=== PATIENT | female | born 1990 | race Caucasian/White ===

== ENCOUNTER 2022-03-23 18:09 | Emergency (ER) | payer OTHER, SELFPAY ==
[2022-03-23 18:15] VITALS: BP 133/84; PULSE 81; RESP 16; TEMP 36.4; O2SAT 100
--- NOTE | 2022-03-23 19:22 | ED.ABDPAIN ---
HPI - Abdominal Pain General Chief Complaint: Abdominal Pain Stated Complaint: severe stomach pain Source: patient Mode of arrival: ambulatory Limitations: no limitations History of Present Illness HPI narrative: 32-year-old female with obesity, esophageal stenosis status post dilatation, gastric reflux presents to the ER with a 2 week history of -- epigastric pain which is continuous. No radiation of the pain. She has nausea without any vomiting or diarrhea. No fever. -- Suprapubic pain. No dysuria or hematuria. MD elicited complaint: abdominal pain Pertinent past history: other ( Gastric reflux) Onset (ago): week(s) ( started 2 weeks ago) Pain Consistency: constant Location: epigastric and suprapubic Quality: aching Radiation: none Migration to: no migration Exacerbating factors: nothing Relieving factors: nothing Associated symptoms: denies other symptoms and nausea Review of Systems Review of Systems: All systems reviewed & are unremarkable except as noted in HPI and below Constitutional: Constitutional: Reports as per HPI and Reports no additional constitutional complaints Eyes: Eyes: Reports as per HPI and Reports no additional eye complaints ENT: Reports system reviewed and no additional complaints, except as documented and Reports as per HPI Cardiovascular: Cardiovascular: Reports as per HPI and Reports no additional cardiovascular complaints Respiratory: Respiratory: Reports as per HPI and Reports no additional respiratory complaints Gastrointestinal: Gastrointestinal: Reports as per HPI, Reports abdominal pain and Reports nausea Genitourinary: Genitourinary: Reports no additional female genitourinary complaints and Reports as per HPI Musculoskeletal: Musculoskeletal: Reports no additional musculoskeletal complaints and Reports as per HPI Integumentary/Breasts: Skin/Breast: Reports system reviewed and no additional complaints, except as docu and Reports as per HPI Neurologic: Reports system reviewed and no additional complaints, except as documented and Reports as per HPI Psychiatric: Psychiatric: Reports no additional psychiatric complaints and Reports as per HPI Endocrine: Endocrine: Reports no additional endocrine complaints and Reports as per HPI Hematologic/Lymphatic: Hematologic/Lymphatic: Reports no additional hematologic/lymphatic complaints and Reports as per HPI Allergic/Immunologic: Allergic/Immunologic: Reports no additional allergic/immunologic complaints and Reports as per HPI PMFSH Past Medical History Medical History (Updated 03/23/22 @ 20:45 by Subhash Trejo MD) Esophageal dilatation Esophageal stenosis Gastric reflux Obesity Exam Const: General: healthy appearing and no acute distress Nutritional Appearance: well nourished Orientation/consciousness: patient oriented x3 Limitations: no limitations HENMT: Head: normal to inspection Ears: external ears normal Face/Nose/Sinus: Normal external nose present Face and sinus: normal facial exam Mouth: Yes Normal oral and palatal mucosa present Throat: posterior oropharynx normal Eyes: Conjunctivae: conjunctivae normal Pupils: Equal, round and reactive pupils present EOM: EOMs intact bilaterally Direct Ophthalmoscopy: no photophobia Neck: Neck: normal visual inspection, no lymphadenopathy and no meningeal signs Chest: Chest palpation & inspection: normal inspection of the chest Resp: Effort & Inspection: normal respiratory effort Auscultation: clear to auscultation bilaterally Cardio: Rate: regular rate Rhythm: regular rhythm GI: GI Palp: Yes Soft to palpation Other: epigastric tenderness without any rigidity or rebound. No suprapubic tenderness noted. : General: Yes no CVA tenderness Back/Spine/Pelvis: Back: no CVA tenderness Skin: General skin exam: normal color Rashes: no rashes Wounds: no wounds Neuro: General: patient oriented x3, moves all extremities, no meningeal signs, no focal motor deficits
[2022-03-23 19:44] LABS: Basophils Absolute Auto 0.03 K/mm3 (0.00-0.10); Basophils Percent Auto 0.4 % (0.0-1.0); Eosinophils Absolute Auto 0.19 K/mm3 (0.02-0.50); Eosinophils Percent Auto 2.3 % (1.0-6.0); Hematocrit 44.5 % (35.0-49.0); Hemoglobin 14.3 g/dL (12.0-15.0); Immature Granulocyte Absolute 0.03 K/mm3 (0.00-0.00); Immature Granulocyte Percent A 0.4 % (0.0-0.0); Lymphocytes Absolute Auto 2.04 K/mm3 (1.10-4.50); Lymphocytes Percent Auto 24.2 % (18.0-42.0); Mean Corpuscular HGB Conc 32.1 g/dL (32.0-36.0); Mean Corpuscular Hemoglobin 28.4 pg (27.0-31.0); Mean Corpuscular Volume 88.3 fL (78.0-102.0); Mean Platelet Volume 10.9 fl (9.2-11.8); Monocytes Percent Auto 7.1 % (2.0-11.0); Neutrophils Absolute Auto 5.5 K/mm3 (1.7-7.2); Neutrophils Percent Auto 65.6 % (50.0-70.0); Platelet Count Result 250 K/mm3 (150-420); Red Blood Count 5.04 M/mm3 (4.20-5.40); Red Cell Distribution Width 14.2 % (11.6-14.4); White Blood Count 8.4 K/mm3 (4.8-10.8)
[2022-03-23 19:46] LABS: Add Urine Microscopic? NO; Appearance Urine Clear (Clear); Bilirubin Urine Negative (Negative); Blood Urine Negative (Negative); Color Urine Yellow (Yellow); Glucose Urine UA Negative (Negative); Ketones Urine Negative (Negative); Leukocyte Esterase Ur Negative LEU/UL (Negative); Nitrate Urine Negative (Negative); Protein Urine Negative (Negative); Specific Grav Ur >= 1.030 (1.010-1.020); Urobilinogen Urine 0.2 mg/dL (0.2-1.0); pH Urine 5.5 (5.0-8.0)
[2022-03-23 19:53] LABS: Pregnancy On Board Control Positive; Urine Pregnancy Test Negative
[2022-03-23 19:59] LABS: Partial Thromboplastin Time 27.8 SEC (23.90-30.70); Prothrombin Time 10.9 Seconds (9.50-12.10)
[2022-03-23 20:04] LABS: Alanine Aminotransferase 32 U/L (14-59); Albumin Level 3.5 g/dL (3.4-5.0); Alkaline Phosphatase 107 U/L (46-116); Anion Gap 4 mmol/L (8-16); Aspartate Amino Transferase 19 U/L (15-37); Bilirubin,Total 0.6 mg/dL (0.00-1.00); Blood Urea Nitrogen 25 mg/dL (7-18); Carbon Dioxide 31 mmol/L (21-32); Chloride 104 mmol/L (98-108); Estimated Glomerular Filt Rate > 60; Glucose 106 mg/dL (70-99); Lipase 22 U/L (16-77); Osmolality Calculated 292 mOsm/kg (285-295); Potassium 3.9 mmol/L (3.5-5.1); Sodium 139 mmol/L (136-145); Total Protein 7.2 g/dL (6.4-8.2)
[2022-03-23 20:06] LABS: Lactic Acid Reflex 1.1 mmol/L (0.4-2.0)
[2022-03-23 20:08] LABS: Calcium 8.5 mg/dL (8.5-10.1)
[2022-03-23 20:11] LABS: Troponin I 4.1 ng/L (0.00-60.4)
[2022-03-23 21:19] VITALS: BP 131/81; PULSE 88; RESP 20; TEMP 36.7; O2SAT 99
== END 2022-03-23 21:20 | disposition home or self-care (01) ==
PROVIDERS: Emergency Provider Internal Medicine Critical Care Medicine
DX: R10.13 Epigastric pain (principal)
CPT/HCPCS: 36415; 80053; 81003; 81025; 83605; 83690; 84484; 85025; 85610; 85730; 99284

== ENCOUNTER 2022-07-29 01:12 | Observation (INO) | payer OTHER, SELFPAY ==
[2022-07-29] VITALS (45 sets, daily range): BP systolic 78–145; BP diastolic 55–112; PULSE 63–86; RESP 13–27; TEMP 36.6–36.9; O2SAT 93–100; BMI 37.0
--- NOTE | 2022-07-29 | ECHO_ITS ---
Patient Info Name: Ellen Alvarez Age: 32 years : 1990 Gender: Female Ht: 64 in Wt: 216 lbs BSA: 2.15 m2 HR: 65 bpm BP: 122 / 72 mmHg Heart Rhythm: Sinus Rhythm Technical Quality: Fair Exam Date: 07/29/2022 9:29 AM Exam Location: [facility] Pulmonary Exam Room: ICU 1 Patient Status: Outpatient Admit Date: 07/29/2022 Staff Ordering Physician: Madina Wilkins APRN Production Troubleshooter: Jenni Mercado RDCS Attending Provider: Josiah Rosas MD Exam Type: CA echo dop color flow w con Study Info Complete two-dimensional, color flow and Doppler transthoracic echocardiogram is performed with contrast to opacify the left ventricle and to improve the deliniation of the left ventricle endocardial borders. Contrast/Agitated Saline Contrast/Ag. Saline: Definity Amount: 2.00 ml Administered By: Jenni Mercado [facility] Existing IV Access: Yes IV Access Condition: patent with no signs of infiltration Summary 1. Technically difficult echocardiogram because of obesity. 2. Definity contrast used to improve visualization. 3. Otherwise unremarkable examination. Left Ventricle Left ventricular chamber dimension is normal. Left ventricular systolic function is normal, estimated at 60-65%. The left ventricular diastolic function is normal. Right Ventricle Right ventricular chamber dimension is normal. Left Atria Left atrial chamber dimension is normal. Right Atria Right atrial chamber dimension is normal. Aortic Valve The aortic valve is normal. Pulmonic Valve The pulmonic valve is normal. Mitral Valve The mitral valve has normal leaflets. Tricuspid Valve The tricuspid valve leaflets are normal. Pericardium/Pleural The pericardium appears normal. Aorta The aortic root size at the sinus of Valsalva is normal. Left Ventricular Outflow Tract Name Value Normal LVOT 2D LVOT Diameter 1.96 cm LVOT Doppler LVOT Peak Gradient 6 mmHg LVOT Mean Gradient 4 mmHg LVOT VTI 27.41 cm LVOT VTI/AV VTI Ratio 0.89 LVOT Stroke Volume 83.09 ml LVOT CO 16.37 l/min LVOT CI 7.62 L/min/m2 Pulmonic Valve Name Value Normal RVOT Doppler RVOT Peak Gradient 2 mmHg PV Doppler PV Peak Gradient 3 mmHg Mitral Valve Name Value Normal MV Doppler MV Decel [place] 433.40 cm/s2 MV PHT 0 s MV Area (
--- NOTE | ~2022-07-29 | CT_ITS ---
EXAMINATION: CTA chest PE protocol DATE: 07/29/2022 13:25 INDICATION: Chest pain TECHNIQUE: Computed tomography angiography (CTA) of the chest was performed with 100 mL Omnipaque-350 intravenous contrast timed to evaluate the pulmonary arteries. Coronal maximum intensity projection 3D-reconstructions were created by the technologist. The dose-length product (DLP) was 986.22 mGy-cm. Automated exposure control and iterative reconstruction technique were employed. COMPARISON: None. FINDINGS: The pulmonary arteries are well-opacified. No pulmonary embolism is identified. There is mi ld dependent atelectasis. The lungs are free of focal airspace opacities. No pleural effusion or pneu mothorax. No pathologically enlarged thoracic lymph nodes are identified. The heart size is normal. T here are changes of cholecystectomy. IMPRESSION: 1. No pulmonary embolism or acute cardiopulmonary abnormality. Reviewed, dictated and finalized at location A.
--- NOTE | ~2022-07-29 | XR_ITS ---
EXAMINATION: XR chest 2V DATE: 07/29/2022 01:34 INDICATION: Chest pain TECHNIQUE: PA and lateral views of the chest are obtained. COMPARISON: None available FINDINGS: The lungs are free of acute opacities. No pleural effusion or pneumothorax. The cardiomedia stinal silhouette is normal. There is mild thoracic spondylosis. Surgical clips in the right upper qu adrant are likely from prior cholecystectomy. IMPRESSION: 1. No acute cardiopulmonary abnormality. Reviewed, dictated and finalized at location A.
--- NOTE | ~2022-07-29 | CT_ITS ---
EXAMINATION: CTA brain carotid DATE: 07/30/2022 14:30 CDT INDICATION: Dizziness TECHNIQUE: Computed tomographic angiography (CTA) of the head was performed without and with 100 mL O mnipaque-350 intravenous contrast. CTA of the neck was performed with intravenous contrast. The dose- length product was 1642.02 mGy-cm. Maximum intensity projection and volume rendered 3D-reconstruction s were created by the technologist on a separate workstation. COMPARISON: None. FINDINGS: HEAD CTA: Normal brain parenchymal volume. No acute intracranial hemorrhage, infarction, mass or mass effect. No ventriculomegaly or midline shift. Basilar cisterns are patent. Paranasal sinuses and mas toids are pneumatized. No depressed skull fractures. There is a dominant right vertebral artery. No e vidence for intracranial aneurysm, stenosis, occlusion or aneurysm. No vascular malformations. NECK CTA: No cervical lymphadenopathy. Mucosal and parapharyngeal spaces are symmetric. Lung apices a re normal. Common carotid arteries are within normal limits. The internal carotid, and external carot id arteries are within normal limits without significant stenosis or dissection. No cervical lymphade nopathy. There is 0% stenosis of the proximal right internal carotid artery relative to normal distal artery l umen diameter (NASCET criteria). There is % stenosis of the proximal left internal carotid artery rel ative to normal distal artery lumen diameter. IMPRESSION: 1: No acute intracranial abnormality. 2: No significant vascular abnormality of the head or neck. Reviewed, dictated and finalized at location A.
--- NOTE | 2022-07-29 01:14 | ECG_ITS ---
Measurements Intervals [place] Rate: 68 P: 47 CO: 159 QRS: 48 QRSD: 107 T: 21 QT: 389 QTc: 415 Interpretive Statements SINUS RHYTHM NONSPECIFIC ST ABNORMALITY ABNORMAL ECG NO PREVIOUS ECG AVAILABLE FOR COMPARISON Electronically Signed On 07-30-2022 9:12:25 CDT by Vickey Vo M.D.
[2022-07-29] MEDS: ASPIRIN 81 MG CHEWABLE TABLET 324 MG PO (01:48)
[2022-07-29 01:54] LABS: Basophils Percent Auto 0.3 % (0.2-1.2); Eosinophils Absolute Auto 0.3 K/mm3 (0-0.3); Eosinophils Percent Auto 2.2 % (0-4.4); Hemoglobin 13.5 g/dL (12.0-15.0); Immature Granulocyte Absolute 0.06 K/mm3 (0.00-0.031); Immature Granulocyte Percent A 0.5 % (0-0.5); Lymphocytes Percent Auto 25.8 % (18.3-44.2); Mean Corpuscular HGB Conc 32.1 g/dl (32-36); Mean Corpuscular Hemoglobin 29.1 pg (26-34); Mean Corpuscular Volume 90.5 fl (80-100); Mean Platelet Volume 10.2 fl (7.4-10.4); Monocytes Absolute Auto 0.7 K/mm3 (0.1-0.6); Monocytes Percent Auto 6.3 % (2.6-8.5); Neutrophils Absolute Auto 7.5 K/mm3 (1.3-6.7); Neutrophils Percent Auto 64.9 % (45.5-73.1); Platelet Count Result 317 k/mm3 (150-375); Red Blood Count 4.64 M/mm3 (4.2-5.4); Red Cell Distribution Width 13.7 % (11.5-14.5); White Blood Count 11.6 K/mm3 (4.5-10.0)
[2022-07-29 02:03] LABS: Alanine Aminotransferase 25 U/L (6-35); Albumin Level 4.1 g/dL (3.5-5.1); Alkaline Phosphatase 123 U/L (38-126); Anion Gap 6 mmol/L (8-16); Aspartate Amino Transferase 24 U/L (14-36); Bilirubin,Total 0.4 mg/dL (0.2-1.3); Blood Urea Nitrogen 22 mg/dL (7-17); Calcium 8.4 mg/dL (8.4-10.2); Carbon Dioxide 26 mmol/L (22-30); Chloride 104 mmol/L (98-107); Estimated CRCL calculation 91 ml/min; Estimated Glomerular Filt Rate 57; Glucose 93 mg/dL (65-110); Lipase 78 U/L (23-300); Potassium 4.5 mmol/L (3.4-5.0); Sodium 136 mmol/L (137-145)
[2022-07-29 02:05] LABS: Prothrombin Time 13.3 Seconds (11.1-14.7)
[2022-07-29 02:06] LABS: Partial Thromboplastin Time 28.2 SECONDS (22.3-36.8)
[2022-07-29 02:15] LABS: Troponin I < 0.012 ng/mL (0.000-0.034)
[2022-07-29 02:32] LABS: D Dimer < 0.27 ug/mL (<0.48)
[2022-07-29 02:40] LABS: NT Pro B Type Natriuretic Pept 91 pg/mL (19.9-100)
--- NOTE | 2022-07-29 03:46 | ED.GENADULT ---
HPI - General Adult General Chief complaint: Chest Pain Stated complaint: chest pain Time Seen by Provider: 07/29/22 02:02 History of Present Illness HPI narrative: Patient 28-year-old female who presents the emergency department with chief complaint of chest pain. Patient reports that she has been having intermittent episodes of chest discomfort and has been seen in multiple emergency departments and actually has seen a cat tender and they are planning on doing an echo as an outpatient on her. Patient reports that she is down here visiting from the [facility] and reports that she had an onset of an episode of chest discomfort. The patient reports the pain radiated to her left arm patient reports the pain is more of a pressure and heaviness sensation. Related Data Allergies Allergy/AdvReac Type Severity Reaction Status Date / Time latex Allergy Rash Verified 07/29/22 01:36 Penicillins Allergy Other Verified 07/29/22 01:36 warfarin Allergy Other Verified 07/29/22 01:36 Review of Systems Review of Systems: A 10 system review of systems was completed on the patient and is negative except for what is stated in the HPI. Nursing and ancillary documentation was reviewed. Exam Narrative: GENERAL: Well-appearing, well-nourished, and in no acute distress. HEAD: Normocephalic, atraumatic. EYES: PERRLA and EOMI. ENT: Nares clear, no rhinorrhea or epistaxis. Mucous membranes moist. NECK: Supple. CHEST: Clear to auscultation. No respiratory distress. HEART: Regular rate and rhythm. No murmur heard. Normal peripheral pulses. ABDOMEN: Soft, nontender, nondistended, normal active bowel sounds. EXTREMITIES: Normal range of motion. No edema. SKIN: Warm, dry, no rash. NEURO: No focal deficits. Alert and oriented x3. PSYCH: Normal mood and affect. Course Vital Signs Vital signs: Vital Signs Temperature 36.9 C 07/29/22 01:29 Pulse Rate 72 07/29/22 01:29 Respiratory Rate 15 07/29/22 01:29 Blood Pressure 140/86 07/29/22 01:29 Pulse Oximetry 100 07/29/22 01:29 Oxygen Delivery Room Air 07/29/22 01:29 Temperature 36.9 C 07/29/22 01:29 Pulse Rate 71 07/29/22 03:46 Respiratory Rate 16 07/29/22 03:46 Blood Pressure 145/95 H 07/29/22 03:46 Pulse Oximetry 99 07/29/22 03:46 Oxygen Delivery Room Air 07/29/22 01:29 Medical Decision Making [facility] Narrative Medical decision making narrative: Differential diagnosis includes ACS, pulmonary embolism, pancreatitis, pneumothorax Chest x-ray showed no evidence of pneumothorax or widened mediastinum EKG is sinus rhythm rate of [address] elevation or ST depression Laboratory studies were obtained which showed a white count of 11.6 hemoglobin of 13.5 electrolytes were within normal limits initial troponin was less than 0.012 D-dimer was less than 2.27 coags are within normal limits BUN was 22 creatinine was 1.1 lipase was 78 and the rest of her liver enzymes are within normal limits repeat troponin was 0.015 given the delta troponin the patient case was discussed with the hospitalist the patient will be admitted for observation serial cardiac markers a Nadia scan stress test will be ordered and a echo will be ordered. Vital Signs Vital Signs: Vital Signs Temperature 36.9 C 07/29/22 01:29 Pulse Rate 72 07/29/22 01:29 Respiratory Rate 15 07/29/22 01:29 Blood Pressure 140/86 07/29/22 01:29 Pulse Oximetry 100 07/29/22 01:29 Oxygen Delivery Room Air 07/29/22 01:29 Temperature 36.9 C 07/29/22 01:29 Pulse Rate 71 07/29/22 03:46 Respiratory Rate 16 07/29/22 03:46 Blood Pressure 145/95 H 07/29/22 03:46 Pulse Oximetry 99 07/29/22 03:46 Oxygen Delivery Room Air 07/29/22 01:29 Lab Data 07/29/22 01:49 07/29/22 01:49 Labs: Lab Results 07/29/22 07/29/22 Range/Units 01:49 04:04 WBC 11.6 H (4.5-10.0) K/mm3 RBC 4.64 (4.2-5.4) M/mm3 Hgb 13.5 (12.
[2022-07-29 04:36] LABS: Troponin I 0.015 ng/mL (0.000-0.034)
--- NOTE | 2022-07-29 06:35 | ADMIMU ---
This patient, Ellen Alvarez, was admitted to IMU status, and placed in Intensive Care Unit-1 at 0620. Patient/family oriented to hospital policies and general routines including ID bracelet, bed and alarms, visiting hours, pain management, procedures, bathroom and other care routines, personal items, smoking policy, room service/diet, and visiting hours. Valuables list has been completed. Information on how to activate the Rapid Response Team has been discussed. Patient/Family are encouraged to report perceived risks to care and to ask questions if they do not understand what they are told or what they should do.
[2022-07-29] MEDS: MORPHINE SULFATE (*CRX) 4 MG/ML INJ IV PUSH ×3 (07:33→12:11)
[2022-07-29] MEDS: ASPIRIN 81 MG CHEWABLE TABLET PO (08:29)
[2022-07-29 08:32] LABS: Troponin I < 0.012 ng/mL (0.000-0.034)
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
[2022-07-29] MEDS: PANTOPRAZOLE SODIUM IV 40 MG VIAL IV PUSH ×2 (08:52→19:29)
[2022-07-29] MEDS: PERFLUTREN LIPID MICROSPHERES 1.5 ML VIAL DILUTED TO 10 ML TOTAL VOLUME IV PUSH (10:00)
--- NOTE | 2022-07-29 10:04 | PCCARD ---
PER DENG MORALES ELECTRONIC SCALE ASSEMBLER AND TESTER WITH THE [facility] ORDER AND IF SHE WANTS A STRESS TEST SHE WILL RE-ORDER
--- NOTE | 2022-07-29 12:52 | PM.CNCAR ---
Assessment and Plan Assessment and plan (1) Atypical chest pain: Code(s): R07.89 - Other chest pain Status: Acute Plan 32-year-old woman with a 1 month history of intermittent nonexertional chest pain. By her description the symptoms are non anginal. Her ECG looks normal in her 3 sets of troponins are unremarkable and rule out evidence of acute coronary syndrome. She has been hospitalized and according to what I understand plans are for her to undergo a CT angiogram presumably to rule out pulmonary embolism. With respect to her cardiac status I do not believe further ischemic testing is necessary at this time. Her symptoms are very atypical and noncardiac by her description. She does have physicians up in [place] with whom she will follow up after discharge from [place] Jaziel Shannon MD [facility] History of Present Illness History of Present Illness Consult date/time: 07/29/22 12:52 Reason For Visit: chest pain Narrative: This is a 32-year-old woman I have been requested to see by the hospitalist today because of chest pain. She is unknown to me prior to this consultation and I do not believe has been at [facility] previously. [facility] generally gets her medical care up in the [place] area. She came to the hospital earlier this morning because of chest pain. She says she has been having episodes of intermittent chest pain off and on for approximately 1 month. The symptoms are dull central pain in the chest that seems to come and go in a unpredictable/nonexertional fashion. When she is not having these symptoms she is able to carry on normal activities without difficulty. She is not noticing exertional dyspnea orthopnea PND edema or palpitations. She states that she was referred to see a post graduate intern for this up in [place] was going to perform an echocardiogram but that has yet to be performed or schedule. She has never had any cardiac problems in the past. She reports no history of hypertension or dyslipidemia. She believes she has been told that she has pre diabetes. In the emergency department the patient's electrocardiogram was normal. She is had 3 sets of troponin levels done that are also within normal range. Review of Systems Constitutional: Constitutional: Reports no additional constitutional complaints Eyes: Eyes: Reports no additional eye complaints ENT: Reports system reviewed and no additional complaints, except as documented Cardiovascular: Cardiovascular: Reports as per HPI Respiratory: Respiratory: Reports no additional respiratory complaints Gastrointestinal: Gastrointestinal: Reports as per HPI Musculoskeletal: Musculoskeletal: Reports no additional musculoskeletal complaints Integumentary/Breasts: Skin/Breast: Reports system reviewed and no additional complaints, except as docu Neurologic: Reports system reviewed and no additional complaints, except as documented Endocrine: Endocrine: Reports no additional endocrine complaints Hematologic/Lymphatic: Hematologic/Lymphatic: Reports no additional hematologic/lymphatic complaints Allergic/Immunologic: Allergic/Immunologic: Reports no additional allergic/immunologic complaints PMF Family History Family History (Updated 07/29/22 @ 06:35 by Vicky Patino RN) Father Acute myocardial infarction Asthma History of blood clots Cerebrovascular accident Chronic obstructive pulmonary disease Diabetes mellitus Hypertension Sibling Asthma History of blood clots Diabetes mellitus Hypertension Grandparent Colon cancer Prostate carcinoma Social History Social History Smoking status: Never smoker Second hand tobacco smoke exposure: Yes Alcohol intake: never Substance use: never Lack of Transportation: No Lack of Food: Never True Current Housing: I Have Housing Concerned About Future Housing: No Difficu
[2022-07-29] MEDS: MUPIROCIN 2% OINT 22 GM TUBE 1 APPLIC TOPICAL (16:44)
[2022-07-29] MEDS: MORPHINE SULFATE (*CRX) 2 MG/ML INJ IV PUSH (19:28)
[2022-07-30] VITALS (12 sets, daily range): BP systolic 110–146; BP diastolic 68–131; PULSE 65–108; RESP 17–20; TEMP 36.2–36.9; O2SAT 98–100
[2022-07-30] MEDS: MORPHINE SULFATE (*CRX) 2 MG/ML INJ IV PUSH ×2 (00:11→04:02)
--- NOTE | 2022-07-30 02:27 | PC.NURSE ---
Patient was transferred to room 311-01 at 0215 from ICU bed -1. Patient orientated to the room and settled.
--- NOTE | 2022-07-30 03:20 | PC.NURSE ---
Patient transferred to room 311 at 0145.
[2022-07-30 06:46] LABS: Hematocrit 40.9 % (37.0-47.0); Hemoglobin 13.2 g/dL (12.0-15.0); Mean Corpuscular HGB Conc 32.3 g/dl (32-36); Mean Corpuscular Hemoglobin 29.1 pg (26-34); Mean Corpuscular Volume 90.3 fl (80-100); Platelet Count Result 284 k/mm3 (150-375); Red Blood Count 4.53 M/mm3 (4.2-5.4); Red Cell Distribution Width 13.6 % (11.5-14.5); White Blood Count 10.3 K/mm3 (4.5-10.0)
[2022-07-30 07:20] LABS: Anion Gap 5 mmol/L (8-16); Blood Urea Nitrogen 19 mg/dL (7-17); Calcium 8.3 mg/dL (8.4-10.2); Carbon Dioxide 29 mmol/L (22-30); Chloride 101 mmol/L (98-107); Cholesterol 188 mg/dL (0-200); Estimated CRCL calculation 90 ml/min; Estimated Glomerular Filt Rate 57; Glucose 99 mg/dL (65-110); HDL Direct 37 mg/dL; Magnesium 2.3 mg/dL (1.6-2.3); Potassium 4.1 mmol/L (3.4-5.0); Sodium 135 mmol/L (137-145); Triglycerides 186 mg/dL (<150)
[2022-07-30 07:31] LABS: LDL Cholesterol Direct 110 mg/dL
[2022-07-30 07:49] LABS: Hemoglobin A1C 4.9 % (<5.7)
[2022-07-30] MEDS: PANTOPRAZOLE SODIUM IV 40 MG VIAL IV PUSH (08:49)
[2022-07-30] MEDS: MONTELUKAST SODIUM 10 MG TABLET PO (08:49)
[2022-07-30] MEDS: CITALOPRAM HYDROBROMIDE 20 MG TABLET PO (08:49)
[2022-07-30] MEDS: CHOLECALCIFEROL 1,000 UNITS TABLET 1000 UNITS PO (08:49)
[2022-07-30] MEDS: MUPIROCIN 2% OINT 22 GM TUBE 1 APPLIC TOPICAL (08:49)
[2022-07-30] MEDS: ASPIRIN 81 MG CHEWABLE TABLET PO (08:49)
[2022-07-30 13:26] LABS: Free T4 Free Thyroxine Reflex 1.35 ng/dL (0.78-2.19)
--- NOTE | 2022-07-30 14:16 | PC.NURSE ---
Pt and caregiver were very angry and making numerous derogatory statements including that pt does not have vertigo, et al. PT worked with pt including but not limited to having her stand, walk, roll in the bed, get out of the bed, etc. Pt was asked if she was dizzy, nauseous, having pain, et al. to which pt denied anything. The only complaint pt had was that her neck was hot and that was going to make her pass out. Pt denied needing meclizine because she was not dizzy nor nauseous stating, I'm here because of my chest pain.
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
--- NOTE | 2022-07-30 14:50 | P.DS_ITS ---
DS: Admitting Diagnosis Discharge Date 07/30/2022 Admitting Diagnosis chest pain DS: Discharge Diagnosis Discharge Diagnosis (1) Atypical chest pain: Code(s): R07.89 - Other chest pain Status: Acute Assessment and Plan: Patient presented to the ED for evaluation of chest pain that has been intermittent for the past month. She sees a Director Trading in [place]. * EKG SR without ST depression or elevation * CXR without acute finding. * Troponin I <0.012, 0.015, <0.012 * BNP 91 * H/O DVT with reported LLE edema prior to admission. D-dimer <0.27. CTA chest completed and without PE or cardiopulmonary disease. * Transthoracic echocardiogram did not show chamber dysfunction, valvular disease or significant pulmonary hypertension. * Cardiology consulted and does not think symptoms are cardiac related and did not think a Lexiscan would be needed. * PRN IV morphine and nitro for chest pain for supportive care. Patient was frequently taking and requesting IV morphine. Of note, nursing staff reported the patient became very upset when IV morphine was discontinued. * telemetry was without ectopy or arrhythmia; no ST depression, elevation, q- waves or T-wave changes. * A1c, TSH w/reflex were within normal limits * LDL 110, HDL 37, triglycerides 186. Recommend diet modifications. * Given IV PPI BID therapy x48 hours. * Given aspirin 325 mg PO in ED and continued on aspirin 81 mg daily * Patient is being weaned off of phentermine per report and would recommend stopping. * Recommend outpatient PFTs for pulmonary evaluation. (2) Dizziness: Code(s): R42 - Dizziness and giddiness Status: Acute Assessment and Plan: C/o dizziness with repositioning. orthostatic vitals with SBP drop 126 to 78 with standing. HR 69 to 85. * 1 liter NS bolus ordered. But does not appear to have been given for unknown reason. * 07/30 repeat orthostatic vitals negative. * patient continued to c/o severe dizziness with flushing sensation and nausea. She insisted she could not stand or ambulate at all. Repeated orthostatics done showing- standing BP121/73 and HR 73, sitting 130/83 and HR 79, standing 111/80 and HR 101 (was taken less than 1 min standing). Patient immediately sat down when starting to take BP at the 5 minute juan due to reported severe dizziness despite standing for the majority of that waiting period. * Neuro exam benign. No nystagmus noted. * PT consulted for evaluation of vestibular therapy- dizziness not reproducible. patient was able to walk in her room 15 feet with standby assistance and no c/o dizziness during ambulation period per therapist. * CTA head and neck obtained and showed no acute stenosis, LVO, acute infarct or other pathology * When discussing morphine may be contributing to symptoms of dizziness, patient stated I've had morphine before and never felt like this. Patient was noted to be argumentative when discussing the possibility of medications causing her symptoms. (3) Cellulitis: Qualifiers: Laterality: unspecified laterality Site of cellulitis: extremity Site of cellulitis of extremity: lower extremity Qualified Code(s): L03.119 - Cellulitis of unspecified part of limb Code(s): L03.90 - Cellulitis, unspecified Status: Acute Assessment and Plan: Patient reported 2 lesions to bilateral thighs with purulent discharge. * She was started on Bactrim DS x10 days and reports she still has 3 more days remaining. * BUN 22, creatinine 1.1, GFR 57. Unknown baseline. * Dry and scabbed. Stop antibiotics. No s/s acute infectio
--- NOTE | 2022-07-30 14:50 | PM.DS ---
DS: Admitting Diagnosis Discharge Date 07/30/2022 Admitting Diagnosis chest pain DS: Discharge Diagnosis Discharge Diagnosis (1) Atypical chest pain: Code(s): R07.89 - Other chest pain Status: Acute Assessment and Plan: Patient presented to the ED for evaluation of chest pain that has been intermittent for the past month. She sees a Medical Staff Assistant in [place]. EKG SR without ST depression or elevation CXR without acute finding. Troponin I <0.012, 0.015, <0.012 BNP 91 H/O DVT with reported LLE edema prior to admission. D-dimer <0.27. CTA chest completed and without PE or cardiopulmonary disease. Transthoracic echocardiogram did not show chamber dysfunction, valvular disease or significant pulmonary hypertension. Cardiology consulted and does not think symptoms are cardiac related and did not think a Lexiscan would be needed. PRN IV morphine and nitro for chest pain for supportive care. Patient was frequently taking and requesting IV morphine. Of note, nursing staff reported the patient became very upset when IV morphine was discontinued. telemetry was without ectopy or arrhythmia; no ST depression, elevation, q-waves or T-wave changes. A1c, TSH w/reflex were within normal limits LDL 110, HDL 37, triglycerides 186. Recommend diet modifications. Given IV PPI BID therapy x48 hours. Given aspirin 325 mg PO in ED and continued on aspirin 81 mg daily Patient is being weaned off of phentermine per report and would recommend stopping. Recommend outpatient PFTs for pulmonary evaluation. (2) Dizziness: Code(s): R42 - Dizziness and giddiness Status: Acute Assessment and Plan: C/o dizziness with repositioning. orthostatic vitals with SBP drop 126 to 78 with standing. HR 69 to 85. 1 liter NS bolus ordered. But does not appear to have been given for unknown reason. 07/30 repeat orthostatic vitals negative. patient continued to c/o severe dizziness with flushing sensation and nausea. She insisted she could not stand or ambulate at all. Repeated orthostatics done showing- standing BP121/73 and HR 73, sitting 130/83 and HR 79, standing 111/80 and HR 101 (was taken less than 1 min standing). Patient immediately sat down when starting to take BP at the 5 minute juan due to reported severe dizziness despite standing for the majority of that waiting period. Neuro exam benign. No nystagmus noted. PT consulted for evaluation of vestibular therapy- dizziness not reproducible. patient was able to walk in her room 15 feet with standby assistance and no c/o dizziness during ambulation period per therapist. CTA head and neck obtained and showed no acute stenosis, LVO, acute infarct or other pathology When discussing morphine may be contributing to symptoms of dizziness, patient stated I've had morphine before and never felt like this. Patient was noted to be argumentative when discussing the possibility of medications causing her symptoms. (3) Cellulitis: Qualifiers: Laterality: unspecified laterality Site of cellulitis: extremity Site of cellulitis of extremity: lower extremity Qualified Code(s): L03.119 - Cellulitis of unspecified part of limb Code(s): L03.90 - Cellulitis, unspecified Status: Acute Assessment and Plan: Patient reported 2 lesions to bilateral thighs with purulent discharge. She was started on Bactrim DS x10 days and reports she still has 3 more days remaining. BUN 22, creatinine 1.1, GFR 57. Unknown baseline. Dry and scabbed. Stop antibiotics. No s/s acute infection. Add mupirocin ointment BID until healed. (4) Obesity: Qualifiers: Body mass index: BMI 37.0-37.9 Obesity classification: adult class 2 (BMI 35 - 39.9) Obesity type: due to excess calories Serious obesity comorbidity presence: unspecified whether serious comorbidity present Qualified Code(s): E66.09 - Other obesity due to excess calories; Z68.37 - Body mass i
--- NOTE | 2022-07-30 14:51 | PCPTNOTE ---
On 07/30/22, the student, [Estelita Ball], provided care and completed [facility] documentation on this patient. I have reviewed the student's documentation and agree with the findings.
[2022-07-30 17:29] LABS: Total Triiodothyronine (T3) 1.21 NG/ML (0.97-1.69)
== END 2022-07-30 16:05 | disposition home or self-care (01) ==
LOC: ANHED 05:24 → ANHICU 07:32 → ANH3MEDSUR 07-30 14:50 → ANHICU 08-02 09:14
PROVIDERS: Nurse Practitioner Family; Admitting Provider Internal Medicine; Emergency Provider Emergency Medicine; Visit Provider Student in an Organized Health Care Education/Training Program
DX: R07.89 Other chest pain (principal); R42 Dizziness and giddiness; L03.119 Cellulitis of unspecified part of limb; R94.31 Abnormal electrocardiogram [ECG] [EKG]; G47.30 Sleep apnea, unspecified; J45.909 Unspecified asthma, uncomplicated; F41.9 Anxiety disorder, unspecified; F32.A Depression, unspecified; Z86.718 Personal history of other venous thrombosis and embolism; K21.9 Gastro-esophageal reflux disease without esophagitis; E03.9 Hypothyroidism, unspecified; E66.9 Obesity, unspecified; Z68.43 Body mass index [BMI] 50.0-59.9, adult; R56.9 Unspecified convulsions; Z79.51 Long term (current) use of inhaled steroids; Z79.899 Other long term (current) drug therapy
CPT/HCPCS: 36415; 70496; 70498; 71046; 71275; 80048; 80053; 80061; 83036; 83690; 83735; 83880; 84439; 84443; 84480; 84484; 85025; 85027; 85380; 85610; 85730; 93005; 96374; 96375; 96376; 97161; 99285; A9270; C8929; C9113; G0378; G0379; J2270; Q9957; Q9967